=== PATIENT | male | born 1985 | race American Indian/Alaskan Native ===

== ENCOUNTER 2016-11-23 12:01 | Emergency (ER) | payer BC ==
[2016-11-23 12:13] VITALS: BP 154/96
[2016-11-23] MEDS ORDERED: MOTRIN PO ONE (13:22)
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
== END 2016-11-23 14:41 | disposition home or self-care (01) ==
LOC: ED 12:01
DX: S66.911A Strain of unspecified muscle, fascia and tendon at wrist and hand level, right hand, initial encounter (principal); L30.9 Dermatitis, unspecified; F17.200 Nicotine dependence, unspecified, uncomplicated; X58.XXXA Exposure to other specified factors, initial encounter; Y93.89 Activity, other specified; Y92.89 Other specified places as the place of occurrence of the external cause; Y99.8 Other external cause status
CPT/HCPCS: 99284